=== PATIENT | male | born 1985 | race Caucasian/White ===

== ENCOUNTER 2017-10-26 11:51 | Emergency (ER) | payer MEDICARE, MEDICAID ==
[~2017-10-26] VITALS: Ht 180.3 cm; Wt 60.0 kg
[2017-10-26 12:20] VITALS: BP 120/78
[2017-10-26] MEDS ORDERED: diphenhydrAMINE 25mg capsule PO ONE (13:50)
[2017-10-26] MEDS ORDERED: dexamethasone 4mg/ml inj IM ONE (13:50)
[2017-10-26] MEDS ORDERED: dexamethasone 4mg tablet PO ONE (14:10)
== END 2017-10-26 14:22 | disposition home or self-care (01) ==
LOC: ER 11:52
DX: L29.9 Pruritus, unspecified (principal); I73.00 Raynaud's syndrome without gangrene
CPT/HCPCS: 99283; J8540; Q0163

== ENCOUNTER 2018-01-31 11:33 | Emergency (ER) | payer MEDICARE, MEDICAID ==
[~2018-01-31] VITALS: Ht 177.8 cm; Wt 60.5 kg
[2018-01-31 11:44] VITALS: BP 131/71
[2018-01-31] MEDS ORDERED: PRED5TAB PO (12:31)
[2018-01-31] MEDS ORDERED: dexamethasone 4mg tablet PO ONE (12:35)
== END 2018-01-31 12:47 | disposition home or self-care (01) ==
LOC: ER 11:33
DX: L23.7 Allergic contact dermatitis due to plants, except food (principal)
CPT/HCPCS: 99283; J8540

== ENCOUNTER 2019-02-26 14:21 | Emergency (ER) | payer MEDICARE, MEDICAID ==
[~2019-02-26] VITALS: Ht 170.2 cm; Wt 62.0 kg
[~2019-02-26 14:21] MED LIST: PRED5TAB PO
[2019-02-26] MEDS ORDERED: LORazepam 1 MG tablet PO ONE (14:35)
[2019-02-26 15:43] VITALS: BP 108/68
== END 2019-02-26 15:58 | disposition home or self-care (01) ==
LOC: ER 14:21
DX: F41.0 Panic disorder [episodic paroxysmal anxiety] (principal); F12.90 Cannabis use, unspecified, uncomplicated; F15.90 Other stimulant use, unspecified, uncomplicated; F11.90 Opioid use, unspecified, uncomplicated
CPT/HCPCS: 99284

== ENCOUNTER 2019-07-27 16:58 | Emergency (ER) | payer MEDICARE, MEDICAID ==
[~2019-07-27] VITALS: Ht 180.3 cm; Wt 61.4 kg
[2019-07-27 17:02] VITALS: BP 128/80
[2019-07-27] MEDS ORDERED: TETanus/Pertussis (Acell)/Diphther VAC/PF (Tdap-Adult) 0.5ml syringe IM ONE (17:40)
[2019-07-27] MEDS ORDERED: ibuprofen tablet 400 MG TABLET PO ONE (17:40)
[2019-07-27] MEDS ORDERED: HYDROcodone/acetaminophen 5mg/325mg tablet PO ONE (18:10)
--- NOTE | 2019-07-27 18:29 | NUR ---
Dermabond in room
[2019-07-27] MEDS ORDERED: BACI28.42 TOP (19:46)
== END 2019-07-27 20:06 | disposition home or self-care (01) ==
LOC: ER 16:58
DX: S61.217A Laceration without foreign body of left little finger without damage to nail, initial encounter (principal); S91.311A Laceration without foreign body, right foot, initial encounter; S61.215A Laceration without foreign body of left ring finger without damage to nail, initial encounter; Z79.899 Other long term (current) drug therapy; W25.XXXA Contact with sharp glass, initial encounter; Y93.89 Activity, other specified; Y92.89 Other specified places as the place of occurrence of the external cause; Y99.9 Unspecified external cause status
CPT/HCPCS: 12001; 73130; 90471; 99284

== ENCOUNTER 2020-02-05 19:02 | Emergency (ER) | payer MEDICARE, MEDICAID ==
[~2020-02-05] VITALS: Ht 180.3 cm; Wt 59.5 kg
[~2020-02-05 19:02] MED LIST changes: +BACI28.42 TOP
--- NOTE | 2020-02-05 19:07 | NUR ---
Pt's family member/significant other accompanied him to the ED. Informed her we are not allowing visitors and asked her to come outside of the ED Lobby. She stated he has really bad anxiety and seizures so I need to be with him. Explained to her that we are not allowing visitors due to the COVID-19 crisis and we can take her phone number to be in touch with her regarding his care. She stated "if he has a seizure, I am going to gianni the fuck out of the hospital!" Attempted to offer support and alternatives to ensure he is under seizure precautions and again explained the reason for the no visitor policy. She stated "If I had known that we would have either a. chosen another hospital or b. waited for the outpatient ultrasound but he was in so much pain we decided to come to the ED instead of waiting." Charge nurse Deondre made aware of the comments made by the patient's family member/significant other.
[2020-02-05 19:09] VITALS: BP 140/84
[2020-02-05] MEDS ORDERED: HYDROcodone/acetaminophen 10/325mg tab PO ONE (19:35)
[2020-02-05 19:49] LABS: BASOPHILS % (AUTO) 0.4 % (0-1); EOSINOPHILS # (AUTO) 0.2 X10'3 (0-0.9); EOSINOPHILS % (AUTO) 1.9 % (0-6); HEMATOCRIT 45.2 % (42.0-52.0); HEMOGLOBIN 15.6 g/dl (14.0-17.9); LYMPHOCYTES # (AUTO) 2.6 X10'3 (1.1-4.8); LYMPHOCYTES % (AUTO) 24.7 % (21-51); MEAN CORPUSCULAR HEMOGLOBIN 31.3 PG (27.0-31.0); MEAN CORPUSCULAR HGB CONC 34.6 g/dL (33.0-36.5); MEAN CORPUSCULAR VOLUME 90.4 FL (78-98); MEAN PLATELET VOLUME 7.9 FL (7.4-10.4); MONOCYTES # (AUTO) 0.7 X10'3 (0-0.9); PLATELET COUNT 251 X10'3 (140-440); RED CELL DISTRIBUTION WIDTH 13.9 % (11.5-14.5); WHITE BLOOD COUNT 10.6 X10'3 (4.5-11.0)
[2020-02-05 20:04] LABS: ALANINE AMINOTRANSFERASE 22 U/L (12-78); ALBUMIN 4.9 G/DL (3.4-5.0); ALBUMIN/GLOBULIN RATIO 1.1 (1.1-1.5); ALKALINE PHOSPHATASE 89 IU/L (46-116); ANION GAP 10 (8-16); ASPARTATE AMINO TRANSFERASE 16 U/L (10-37); BILIRUBIN,TOTAL 0.5 MG/DL (0.1-1.0); BLOOD UREA NITROGEN 10 MG/DL (7-18); BUN/CREATININE RATIO 9.4 (5.4-32.0); CALCIUM 9.9 MG/DL (8.5-10.1); CHLORIDE 104 MMOL/L (99-107); CREATININE 1.06 MG/DL (0.60-1.10); GLUCOSE 85 MG/DL (70-104); POTASSIUM 3.3 MMOL/L (3.5-5.1); SODIUM 144 MMOL/L (135-145); TOTAL CARBON DIOXIDE 29.8 MMOL/L (24-32); TOTAL PROTEIN 9.3 G/DL (6.4-8.2); eGFR 81 ML/MIN
[2020-02-05] MEDS ORDERED: CefTRIAXone 250MG IM Kit w/LIDOcaine IM ONE (20:05)
[2020-02-05] MEDS ORDERED: DOXY100C77 PO (20:22)
[2020-02-05] MEDS ORDERED: TRAM50TA2 PO (20:23)
== END 2020-02-05 21:04 | disposition home or self-care (01) ==
LOC: ER 19:03
DX: N45.1 Epididymitis (principal); F41.9 Anxiety disorder, unspecified; M79.661 Pain in right lower leg; Z79.899 Other long term (current) drug therapy
CPT/HCPCS: 36415; 76705; 76870; 80053; 85025; 99285; J0696

== ENCOUNTER 2020-02-08 13:29 | Emergency (ER) | payer MEDICARE, MEDICAID ==
[~2020-02-08] VITALS: Ht 180.3 cm; Wt 59.5 kg
[~2020-02-08 13:29] MED LIST changes: +DOXY100C77 PO; +TRAM50TA2 PO
[2020-02-08 13:34] VITALS: BP 128/83
[2020-02-08] MEDS ORDERED: azithromycin 250mg tablet PO ONE (14:10)
== END 2020-02-08 14:36 | disposition home or self-care (01) ==
LOC: ER 13:29
DX: Z11.3 Encounter for screening for infections with a predominantly sexual mode of transmission (principal); R10.31 Right lower quadrant pain; Z79.899 Other long term (current) drug therapy
CPT/HCPCS: 36415; 87491; 99283

== ENCOUNTER 2022-08-26 12:51 | Emergency (ER) | payer MEDICARE, MEDICAID ==
[~2022-08-26] VITALS: Ht 175.3 cm; Wt 61.0 kg
[~2022-08-26 12:51] MED LIST changes: -DOXY100C77 PO; -TRAM50TA2 PO
[2022-08-26 13:13] VITALS: BP 136/79
[2022-08-26] MEDS ORDERED: TETanus/Pertussis (Acell)/Diphther VAC/PF (Tdap-Adult) 0.5ml syringe IMVAC ONE (14:45)
[2022-08-26] MEDS ORDERED: CEPH-585 PO (15:28)
== END 2022-08-26 15:47 | disposition home or self-care (01) ==
LOC: ER 12:52
DX: S91.332A Puncture wound without foreign body, left foot, initial encounter (principal); F41.9 Anxiety disorder, unspecified; W22.8XXA Striking against or struck by other objects, initial encounter; Y93.9 Activity, unspecified; Y92.89 Other specified places as the place of occurrence of the external cause; Y99.8 Other external cause status
CPT/HCPCS: 90471; 90715; 99283; L4360

== ENCOUNTER 2023-03-03 18:40 | Emergency (ER) | payer MEDICARE, MEDICAID ==
[~2023-03-03] VITALS: Ht 170.2 cm; Wt 58.8 kg
[~2023-03-03 18:40] MED LIST changes: +CEPH-585 PO
[2023-03-03 18:45] VITALS: BP 125/49
[2023-03-03] MEDS ORDERED: bacitracin 15gm ointment TP STA (19:43)
== END 2023-03-03 20:17 | disposition home or self-care (01) ==
LOC: ER 18:41
DX: S81.001A Unspecified open wound, right knee, initial encounter (principal); F41.9 Anxiety disorder, unspecified; W19.XXXA Unspecified fall, initial encounter; Y93.89 Activity, other specified; Y92.89 Other specified places as the place of occurrence of the external cause; Y99.8 Other external cause status
CPT/HCPCS: 99284; A6449

== ENCOUNTER 2023-09-10 16:19 | Emergency (ER) | payer MEDICARE, MEDICAID ==
[~2023-09-10] VITALS: Ht 175.3 cm; Wt 55.5 kg
[~2023-09-10 16:19] MED LIST changes: -CEPH-585 PO
[2023-09-10 16:49] VITALS: BP 138/95; PULSE 91; RESP 18; TEMP 98.2; O2SAT 99
[2023-09-10] MEDS ORDERED: amox tr/potassium clavulanate 875/125mg TAB PO ONE (17:00)
[2023-09-10] MEDS ORDERED: TETanus/Pertussis (Acell)/Diphther VAC/PF (Tdap-Adult) 0.5ml syringe IMVAC ONE (17:00)
[2023-09-10] MEDS ORDERED: bacitracin 15gm ointment TP ONE (17:00)
[2023-09-10] MEDS ORDERED: AMOX-580 PO (17:04)
== END 2023-09-10 17:21 | disposition home or self-care (01) ==
LOC: ER 16:19
DX: S71.132A Puncture wound without foreign body, left thigh, initial encounter (principal); F41.9 Anxiety disorder, unspecified; W64.XXXA Exposure to other animate mechanical forces, initial encounter; Y93.89 Activity, other specified; Y92.89 Other specified places as the place of occurrence of the external cause; Y99.8 Other external cause status
CPT/HCPCS: 90471; 90715; 99283